=== PATIENT | male | born 1990 | race American Indian/Alaskan Native ===

== ENCOUNTER 2020-08-29 15:52 | Emergency (ER) | payer OTHER ==
[2020-08-29] MEDS ORDERED: ACETAMINOPHEN 325 MG TAB PO ONE (16:36)
[2020-08-29] MEDS ORDERED: DIPHtheria,PERTUSSIS(ACELL),TETANUS VACCINE/PF 0.5 ML VIAL IM ONE (16:36)
[2020-08-29] MEDS ORDERED: CYCLOBENZAPRINE 10 MG TAB PO ONE (16:36)
[2020-08-29 17:08] VITALS: BP 129/71
[2020-08-29] MEDS ORDERED: NEOMY 3.5 MG/BACIT 400 UNITS/POLY B 5000 UNITS/GM OINT PACKET TP ONE (17:09)
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
== END 2020-08-29 18:16 | disposition home or self-care (01) ==
LOC: ED 15:52
DX: S09.90XA Unspecified injury of head, initial encounter (principal); S00.01XA Abrasion of scalp, initial encounter; M25.561 Pain in right knee; R51.9 Headache, unspecified; M79.604 Pain in right leg; J45.909 Unspecified asthma, uncomplicated; F12.10 Cannabis abuse, uncomplicated; Z98.890 Other specified postprocedural states; Z79.1 Long term (current) use of non-steroidal anti-inflammatories (NSAID); Z79.899 Other long term (current) drug therapy; Z88.0 Allergy status to penicillin; V49.49XA Driver injured in collision with other motor vehicles in traffic accident, initial encounter; Y93.89 Activity, other specified; Y92.410 Unspecified street and highway as the place of occurrence of the external cause; Y99.8 Other external cause status
CPT/HCPCS: 70450; 73562; 73590; 90471; 90715; 99285; A6250

== ENCOUNTER 2020-09-03 10:41 | Emergency (ER) | payer OTHER ==
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
[2020-09-03 11:11] VITALS: BP 117/65
== END 2020-09-03 11:35 | disposition left against medical advice (07) ==
LOC: ED 10:41
DX: M79.604 Pain in right leg (principal); G43.909 Migraine, unspecified, not intractable, without status migrainosus; J45.909 Unspecified asthma, uncomplicated; F12.10 Cannabis abuse, uncomplicated; Z53.21 Procedure and treatment not carried out due to patient leaving prior to being seen by health care provider; Z79.1 Long term (current) use of non-steroidal anti-inflammatories (NSAID); Z79.899 Other long term (current) drug therapy; Z88.0 Allergy status to penicillin; V49.49XA Driver injured in collision with other motor vehicles in traffic accident, initial encounter; W22.10XA Striking against or struck by unspecified automobile airbag, initial encounter; Y93.89 Activity, other specified; Y92.410 Unspecified street and highway as the place of occurrence of the external cause; Y99.8 Other external cause status